=== PATIENT | male | born 1985 | race Caucasian/White ===

== ENCOUNTER 2023-03-26 11:32 | Day surgery (SDC) | payer BC ==
[~2023-03-26 11:32] MED LIST: Lactated Ringers 1,000 ML IV SCH; Sodium Chloride 0.9% 10 ML Syringe FLUSH PRN; Sodium Chloride 0.9% 2.5 ML Syringe FLUSH PRN; Sodium Chloride 0.9% 20 ML SDV IV PRN
[2023-03-27] MEDS ORDERED: propofoL 50 ML ONE (12:33)
== END 2023-03-26 14:00 | disposition home or self-care (01) ==
LOC: MW.SDS 11:32
PROVIDERS: ATTEND Surgery
DX: K21.9 Gastro-esophageal reflux disease without esophagitis (principal)
CPT/HCPCS: 43239; J2704; J7120; 00731

== ENCOUNTER 2024-04-16 06:43 | Day surgery (SDC) | payer BC, OTHER ==
[~2024-04-16 06:43] MED LIST changes: +Albuterol 0.083% 2.5 MG/3 ML Neb Soln NEB PRN; +HYDROmorphone 1 MG/ML Syringe IVPUSH PRN; -Lactated Ringers 1,000 ML IV SCH; +Metoclopramide 10 MG/2 ML SDV IVPUSH PRN; +Morphine 2 MG/ML SYRINGE IVPUSH PRN; +Naloxone 0.4 MG/ML SDV IVPUSH PRN; +Ondansetron 4 MG/2 ML SDV IVPUSH PRN; +Phenylephrine HCl In 0.9% NaCl 1 MG/10 ML Syringe IVPUSH PRN; -Sodium Chloride 0.9% 10 ML Syringe FLUSH PRN; -Sodium Chloride 0.9% 2.5 ML Syringe FLUSH PRN; -Sodium Chloride 0.9% 20 ML SDV IV PRN; +fentaNYL 50 MCG/ML SDV IVPUSH PRN
[2024-04-16] MEDS: Lactated Ringers 1,000 ML IV SCH (07:06)
[2024-04-16] MEDS ORDERED: Bupivacaine 0.5% 30 ML SDV ONE (07:12)
[2024-04-16] MEDS ORDERED: Propofol 200 MG/20 ML SDV ONE (07:16)
[2024-04-16] MEDS ORDERED: fentaNYL 100 MCG/2 ML SDV ONE (07:16)
[2024-04-16] MEDS ORDERED: dexmedeTOMIDine HCl 200 MCG/2 ML SDV ONE (07:16)
[2024-04-16] MEDS ORDERED: Ondansetron 4 MG/2 ML SDV ONE (07:16)
[2024-04-16] MEDS ORDERED: ceFAZolin 2 GM Vial ONE (07:17)
[2024-04-16] MEDS ORDERED: Sodium Chloride 0.9% 20 ML ONE (07:17)
[2024-04-16] MEDS ORDERED: Bupivacaine 0.25% 30 ML SDV ONE (07:19)
[2024-04-16] MEDS ORDERED: Morphine 10 MG/ML SDV ONE (07:19)
[2024-04-16] MEDS ORDERED: Dexamethasone 4 MG/ML 5 ML MDV ONE (07:57)
[2024-04-16] MEDS ORDERED: Magnesium Sulfate (4.06 MEQ/ML) 5 GM/10 ML SDV ONE (08:02)
[2024-04-16] MEDS ORDERED: Ketorolac 30 MG/ML SDV ONE (08:09)
== END 2024-04-16 10:10 | disposition home or self-care (01) ==
LOC: MW.SDS 06:43
PROVIDERS: ATTEND Surgery
DX: K42.9 Umbilical hernia without obstruction or gangrene (principal); K21.9 Gastro-esophageal reflux disease without esophagitis; Z79.899 Other long term (current) drug therapy; Z88.2 Allergy status to sulfonamides
CPT/HCPCS: 49591; J0131; J0665; J0690; J1100; J1885; J2272; J2405; J2704; J3010; J7120; 00790; 64486; J3490

== ENCOUNTER 2024-04-27 23:38 | Emergency (ER) | payer OTHER ==
[2024-04-27] MEDS ORDERED: Sodium Chloride 0.9% 10 ML Syringe FLUSH PRN (23:50)
[2024-04-27] MEDS ORDERED: Sodium Chloride 0.9% 2.5 ML Syringe FLUSH PRN (23:50)
[2024-04-28] MEDS: Sodium Chloride 0.9% 1,000 ML IV ONE ×2 (00:06→00:56)
[2024-04-28] MEDS: Ondansetron 4 MG/2 ML SDV IVPUSH ONE (00:06)
[2024-04-28] MEDS: fentaNYL 50 MCG/ML SDV IVPUSH ONE ×2 (00:07→01:12)
[2024-04-28] MEDS: Piperacillin/Tazobactam 4.5 GM in Sodium Chloride 0.9% 100 ML IV ONE (00:32)
[2024-04-28 00:41] LABS: BASOPHILS ABSOLUTE AUTO 0.01 K/uL (0.00-0.20); BASOPHILS PERCENT AUTO 0.1 % (0.0-1.0); EOSINOPHILS ABSOLUTE AUTO 0.06 K/uL (0.00-0.45); EOSINOPHILS PERCENT AUTO 0.7 % (0.0-6.0); HEMATOCRIT 43.6 % (42.0-52.0); HEMOGLOBIN 15.6 g/dL (14.0-18.0); IMMATURE GRAN ABSOLUTE AUTO 0.02 K/uL (0.00-0.05); IMMATURE GRAN PERCENT AUTO 0.2 % (0.0-0.4); LYMPHOCYTES ABSOLUTE AUTO 1.22 K/uL (1.00-4.80); LYMPHOCYTES PERCENT AUTO 13.7 % (24.0-44.0); MEAN CORPUSCULAR HEMOGLOBIN 30.4 pg (28.0-32.0); MEAN CORPUSCULAR HGB CONC 35.8 g/dL (32.0-36.0); MEAN CORPUSCULAR VOLUME 84.8 fL (83.0-99.0); MEAN PLATELET VOLUME 8.3 fL (9.4-12.4); MONOCYTES ABSOLUTE AUTO 0.09 K/uL (0.00-0.80); NEUTROPHILS PERCENT AUTO 84.3 % (41.0-71.0); PLATELET COUNT,PLT 170 K/uL (150-400); RED BLOOD CELL COUNT 5.14 M/uL (4.52-5.90)
[2024-04-28 00:45] LABS: A/G RATIO 1.2 (0.9-1.6); ALBUMIN 4.1 g/dL (3.4-5.0); BILIRUBIN TOTAL 0.8 mg/dL (0.2-1.0); CALCIUM 8.9 mg/dL (8.5-10.1); CREATININE 1.2 mg/dL (0.8-1.3); EST CRCL DRUG DOSING (CG) 97.99 mL/min; POTASSIUM,K 3.6 mmol/L (3.5-5.1); PROTEIN TOTAL,TP 7.5 g/dL (6.4-8.2)
[2024-04-28 01:09] LABS: CARBON DIOXIDE,CO2 25.7 mmol/L (21.0-32.0)
[2024-04-28] MEDS ORDERED: fentaNYL 100 MCG/2 ML SDV IVPUSH PRN (01:13)
[2024-04-28 03:00] LABS: APPEARANCE,URINE CLEAR; BILIRUBIN,URINE NEGATIVE (NEGATIVE); COLOR,URINE YELLOW; GLUCOSE,URINE NEGATIVE (NEGATIVE); KETONES,URINE NEGATIVE (NEGATIVE); LEUKOCYTE ESTERASE,URINE NEGATIVE (NEGATIVE); NITRITE,URINE NEGATIVE (NEGATIVE); OCCULT BLOOD,URINE NEGATIVE (NEGATIVE); PH,URINE 5.5 (5.0-8.0); PROTEIN,URINE NEGATIVE (NEGATIVE); UROBILINOGEN,URINE 0.2 EU/dL (<2.0)
[2024-04-28] MEDS: Ketorolac 30 MG/ML SDV IVPUSH ONE (06:13)
[2024-04-28] MEDS: Iopamidol 755 MG/ML 500 ML Multipack Bottle IVPUSH STA (07:14)
== END 2024-04-28 08:12 | disposition home or self-care (01) ==
LOC: MW.ED 23:38
DX: J02.0 Streptococcal pharyngitis (principal); R10.84 Generalized abdominal pain; R10.817 Generalized abdominal tenderness; R19.7 Diarrhea, unspecified; R74.01 Elevation of levels of liver transaminase levels; Z87.19 Personal history of other diseases of the digestive system; E66.9 Obesity, unspecified; Z75.8 Other problems related to medical facilities and other health care; Z88.2 Allergy status to sulfonamides; Z79.899 Other long term (current) drug therapy; Z68.31 Body mass index [BMI] 31.0-31.9, adult
CPT/HCPCS: 36415; 74021; 74177; 80053; 81003; 83690; 85025; 87428; 87651; 96361; 96365; 96375; 99284; J1885; J2405; J2543; J3010; J3490; J7030; Q9967